=== PATIENT | male | born 1990 | race Caucasian/White ===

== ENCOUNTER → 2019-10-02 | Outpatient (CLI) | payer BC, OTHER | LOC: M LABSMTC 12:46 | PROVIDERS: ATTEND Family Medicine | DX: Z11.59 Encounter for screening for other viral diseases (principal) ==

== ENCOUNTER 2020-07-04 21:19 | Emergency (ER) | payer BC, OTHER ==
[~2020-07-04] VITALS: Ht 180.3 cm; Wt 92.7 kg
[2020-07-05 00:29] VITALS: BP 156/79
== END 2020-07-05 00:31 | disposition home or self-care (01) ==
LOC: M ED 21:19
DX: S61.011A Laceration without foreign body of right thumb without damage to nail, initial encounter (principal); W26.8XXA Contact with other sharp object(s), not elsewhere classified, initial encounter; Y92.010 Kitchen of single-family (private) house as the place of occurrence of the external cause; Y93.G1 Activity, food preparation and clean up; E11.9 Type 2 diabetes mellitus without complications; Z88.0 Allergy status to penicillin

== ENCOUNTER → 2021-01-30 | Outpatient (CLI) | payer BC, OTHER ==
[2021-01-30 12:29] LABS: ALBUMIN 3.4 GM/DL (3.2-5.2); BLOOD UREA NITROGEN 13 MG/DL (7-18); CALCIUM LEVEL 8.3 MG/DL (8.5-10.1); CARBON DIOXIDE LEVEL 27 MEQ/L (21-32); CHLORIDE LEVEL 103 MEQ/L (98-107); CREATININE FOR GFR 1.26 MG/DL (0.70-1.30); GLOMERULAR FILTRATION RATE > 60.0 (>60); GLUCOSE, FASTING 110 MG/DL (70-100); PHOSPHORUS LEVEL 3.3 MG/DL (2.5-4.9); SODIUM LEVEL 136 MEQ/L (136-145)
[2021-01-30 13:10] LABS: GC DNA AMPLIFICATION NEGATIVE (NEGATIVE)
[2021-01-31 23:07] LABS: PSA TOTAL 0.8 ng/mL (0.0-4.0)
== END ==
LOC: M WUC 08:48
PROVIDERS: ATTEND Physician Assistant
DX: R30.0 Dysuria (principal)

== ENCOUNTER → 2021-02-06 | Outpatient (REF) | payer BC, OTHER ==
[2021-02-06 14:09] LABS: APPEARANCE, URINE CLEAR (CLEAR); BACTERIA, URINE AUTO NEGATIVE (NEGATIVE); BILIRUBIN, URINE AUTO NEGATIVE (NEGATIVE); BLOOD, URINE BLOOD NEGATIVE (NEGATIVE); COLOR, URINE YELLOW (YELLOW); GLUCOSE, URINE (UA) AUTO NEGATIVE (NEGATIVE); KETONE, URINE AUTO NEGATIVE (NEGATIVE); LEUKOCYTE ESTERASE, URINE AUTO NEGATIVE (NEGATIVE); NITRITE, URINE AUTO NEGATIVE (NEGATIVE); PROTEIN, URINE AUTO NEGATIVE (NEGATIVE); RBC, URINE AUTO 0 /HPF (0-3); SPECIFIC GRAVITY URINE AUTO 1.016 (1.002-1.035); SQUAMOUS EPITHELIAL CELL UR AU 0 /HPF (0-6); UROBILINOGEN, URINE AUTO 0.2 mg/dL (0.0-2.0); WBC, URINE AUTO 1 /HPF (0-3)
== END ==
LOC: M SMT 11:52
PROVIDERS: ATTEND Nurse Practitioner Women's Health
DX: R39.198 Other difficulties with micturition (principal)

== ENCOUNTER 2021-02-09 20:55 | Emergency (ER) | payer BC, OTHER ==
[2021-02-09] MEDS ORDERED: LIDOCAINE 2% MDV 20ML VIAL SC ONE (22:00)
--- NOTE | 2021-02-09 22:01 | REPVR ---
PROCEDURE INFORMATION: Exam: XR Left Hand Exam date and time: 02/09/2021 9:20 PM Age: 30 years old Clinical indication: Injury or trauma; Fall; Laceration; Hand; Left TECHNIQUE: Imaging protocol: XR Left hand. Views: 3 or more views. COMPARISON: No relevant prior studies available. FINDINGS: Bones/joints: Normal. Soft tissues: Normal. IMPRESSION: No acute findings. Electronically signed by: Christopher Smith On 02/09/2021 22:00:35 PM
[2021-02-09] MEDS ORDERED: NEOSPORIN OINT 0.9 GM PKT TOP ONE (23:10)
--- NOTE | 2021-02-09 23:59 | REPVR ---
PROCEDURE INFORMATION: Exam: XR Right Wrist Exam date and time: 02/09/2021 11:19 PM Age: 30 years old Clinical indication: Pain; Wrist; Right; Additional info: Trauma TECHNIQUE: Imaging protocol: XR Right wrist. Views: 3 or more views. COMPARISON: No relevant prior studies available. FINDINGS: Bones/joints: No acute fracture. Carpal bones align normally. No bone lesion. Scaphoid appears intact. Joint spaces are well-maintained for age aside from slight irregularity involving the articulation between the lunate and triquetrum which appears chronic. Soft tissues: No focal soft tissue swelling. IMPRESSION: 1. No acute fracture or osseous malalignment. 2. Undulating cortical contour and sclerosis at the interface between the lunate and triquetrum which does not appear acute and may be developmental, given the similar appearance of the left hand Electronically signed by: Armani Uribe On 02/09/2021 23:59:01 PM
== END 2021-02-10 00:26 | disposition home or self-care (01) ==
LOC: M ED 20:55
DX: S61.412A Laceration without foreign body of left hand, initial encounter (principal); W19.XXXA Unspecified fall, initial encounter; Y92.89 Other specified places as the place of occurrence of the external cause; Y93.9 Activity, unspecified; Y99.0 Civilian activity done for income or pay; Z88.0 Allergy status to penicillin

== ENCOUNTER 2021-02-16 15:06 | Emergency (ER) | payer BC, OTHER ==
[~2021-02-16] VITALS: Ht 180.3 cm; Wt 89.3 kg
[2021-02-16 18:10] VITALS: BP 130/72
== END 2021-02-16 18:18 | disposition home or self-care (01) ==
LOC: M ED 15:06
DX: Z48.02 Encounter for removal of sutures (principal)

== ENCOUNTER → 2021-02-16 | Outpatient (CLI) | payer BC, OTHER ==
--- NOTE | 2021-02-16 14:46 | REP ---
INDICATION: DIFF VOIDING. COMPARISON: None. TECHNIQUE: Limited pelvic, bladder sonography. FINDINGS: Visualized bladder anderson are smooth. No bladder mass lesion is observed. Filled bladder volume is somewhat dilated, 795 mL. Postvoid there is essentially complete emptying, 1% postvoid residual, 8 mL calculated postvoid residual. Transabdominal prostate dimensions are normal at 2.5 x 2.8 x 3.6 cm, 13 mL. IMPRESSION: Somewhat distended filled bladder. Otherwise negative limited pelvic, bladder sonography. <Electronically signed by John Muhammad > 02/16/21 [id number]
--- NOTE | 2021-02-16 14:47 | REP ---
INDICATION: DIFF VOIDING. COMPARISON: None. TECHNIQUE: Renal sonography. FINDINGS: Renal cortical echogenicity pattern is normal bilaterally and contours are smooth. There is no evidence of hydronephrosis, cyst, mass, or calculus in either kidney. The right kidney measures 11.6 x 6.3 x 4.7 cm. Left renal dimensions are 12.3 x 5.2 x 5.5 cm. IMPRESSION: Normal renal sonography. <Electronically signed by John Muhammad > 02/16/21 [id number]
== END ==
LOC: M RAD 13:48
PROVIDERS: ATTEND Nurse Practitioner Women's Health
DX: R39.198 Other difficulties with micturition (principal); R10.9 Unspecified abdominal pain

== ENCOUNTER 2021-02-20 08:44 | Emergency (ER) | payer BC, OTHER ==
[~2021-02-20] VITALS: Ht 180.3 cm; Wt 88.7 kg
[2021-02-20 08:44] VITALS: BP 140/91
== END 2021-02-20 12:38 | disposition home or self-care (01) ==
LOC: M ED 08:44
DX: Z48.02 Encounter for removal of sutures (principal); Z88.0 Allergy status to penicillin